=== PATIENT | female | born 1980 | race American Indian/Alaskan Native ===

== ENCOUNTER 2024-04-23 15:17 | Emergency (ER) | payer MEDICAID ==
[2024-04-23 16:09] LABS: BASOPHILS ABSOLUTE AUTO 0.02 K/uL (0.00-0.10); BASOPHILS PERCENT AUTO 0.3 % (0.1-1.3); EOSINOPHILS ABSOLUTE AUTO 0.01 K/uL (0.00-0.40); EOSINOPHILS PERCENT AUTO 0.1 % (0.0-5.4); HEMATOCRIT 34.3 % (34.3-46.0); HEMOGLOBIN 10.6 g/dL (11.2-15.5); IMMATURE GRAN ABSOLUTE AUTO 0.03 K/uL (0.00-0.23); IMMATURE GRAN PERCENT AUTO 0.4 % (0.0-0.7); LYMPHOCYTES ABSOLUTE AUTO 0.72 K/uL (0.8-3.3); MEAN CORPUSCULAR HEMOGLOBIN 25.5 pg (31.6-35.5); MEAN CORPUSCULAR HGB CONC 30.9 g/dL (31.6-35.5); MEAN CORPUSCULAR VOLUME 82.5 fL (81.4-99.0); MONOCYTES ABSOLUTE AUTO 0.45 K/uL (0.20-0.90); MONOCYTES PERCENT AUTO 6.2 % (3.3-12.6); PLATELET COUNT,PLT 425 K/uL (130-375); RED BLOOD CELL COUNT 4.16 M/uL (3.77-5.24); WHITE BLOOD CELL COUNT,WBC 7.2 K/uL (3.2-11.0)
[2024-04-23 16:35] LABS: A/G RATIO 0.6 (1.2-2.2); ALANINE AMINOTRANSFERASE,ALT 27 U/L (12-78); ALBUMIN 3.1 g/dL (3.4-5.0); ALKALINE PHOSPHATASE 146 U/L (46-116); ASPARTATE AMNIOTRANSFERASE,AST 27 U/L (15-37); BILIRUBIN TOTAL 0.4 mg/dL (0.2-1.0); BLOOD UREA NITROGEN,BUN 11 mg/dL (7-18); CALCIUM 9.2 mg/dL (8.5-10.1); CARBON DIOXIDE,CO2 20 mmol/L (21-32); CHLORIDE,CL 105 mmol/L (100-108); CREATININE 0.9 mg/dL (0.6-1.0); EST CRCL DRUG DOSING (CG) 71.78 mL/min; ESTIMATED GFR 81 mL/min (>60); GLUCOSE RANDOM 131 mg/dL (74-106); POTASSIUM,K 3.4 mmol/L (3.6-5.2); PROTEIN TOTAL,TP 8.2 g/dL (6.4-8.2); SODIUM,NA 139 mmol/L (140-148)
[2024-04-23] MEDS: Iopamidol 612 MG/ML 100 ML Bottle IV SCH (16:37)
[2024-04-23] MEDS: Sodium Chloride 0.9% 80 ML IV SCH (16:37)
[2024-04-23 16:41] LABS: ANION GAP 17.4 mmol/L (5.0-14.0)
[2024-04-23] MEDS: Sodium Chloride 0.9% 500 ML IV ONE (17:03)
[2024-04-23] MEDS: Ondansetron 4 MG/2 ML SDV IVPUSH ONE (17:59)
[2024-04-23] MEDS: Buprenorphine/Naloxone 8-2 MG Tab.SL SL SCH (20:14)
[2024-04-27] MEDS: QUEtiapine 25 MG Tab PO SCH (20:54)
[2024-04-28] MEDS: Buprenorphine/Naloxone 8-2 MG Tab.SL SL ONE (16:58)
[2024-04-28] MEDS: Nicotine 21 MG/24 Hr Patch TRDERM ONE (20:47)
[2024-04-29] MEDS: ClonazePAM 1 MG Tab PO PRN (22:13)
[2024-05-01] MEDS: ClonazePAM 0.5 MG Tab PO ONE (17:10)
[2024-05-05] MEDS: Nicotine 21 MG/24 Hr Patch TRDERM ONE (18:18)
[2024-05-05] MEDS: Gabapentin 400 MG Cap PO SCH (20:59)
== END 2024-05-08 07:24 ==
LOC: JP.ED 15:17
DX: T81.31XA Disruption of external operation (surgical) wound, not elsewhere classified, initial encounter (principal); F17.210 Nicotine dependence, cigarettes, uncomplicated; Z04.6 Encounter for general psychiatric examination, requested by authority; Z88.8 Allergy status to other drugs, medicaments and biological substances; Z88.9 Allergy status to unspecified drugs, medicaments and biological substances
CPT/HCPCS: 36415; 74177; 80053; 83690; 85025; 96361; 96374; 99284; A9270; J0574; J2405; J3490; J7030; Q9967